=== PATIENT | male | born 2000 | race Caucasian/White ===

== ENCOUNTER 2023-05-14 18:14 | Emergency (ER) | payer BC ==
[~2023-05-14] VITALS: Ht 167.6 cm; Wt 63.5 kg
[2023-05-14 18:15] VITALS: BP_SYST 109; PULSE 109; RESP 18; TEMP 97.9; O2SAT 95
[2023-05-14 19:11] VITALS: BP_SYST 110; PULSE 91; RESP 18; TEMP 97.6; O2SAT 97
== END 2023-05-14 19:11 | disposition home or self-care (01) ==
LOC: SED 18:14
DX: S00.01XA Abrasion of scalp, initial encounter (principal); G40.909 Epilepsy, unspecified, not intractable, without status epilepticus; K13.0 Diseases of lips; Z88.8 Allergy status to other drugs, medicaments and biological substances; Z79.899 Other long term (current) drug therapy; X58.XXXA Exposure to other specified factors, initial encounter; Y93.89 Activity, other specified; Y92.89 Other specified places as the place of occurrence of the external cause; Y99.8 Other external cause status
CPT/HCPCS: 99283